=== PATIENT | female | born 1955 ===

== ENCOUNTER 2017-05-15 07:39 | Outpatient (CLI) | payer BC | END 2017-05-15 07:40 | disposition home or self-care (01) | LOC: BICMAMMO 07:39 | PROVIDERS: ATTEND Physician Assistant | DX: Z12.31 Encounter for screening mammogram for malignant neoplasm of breast (principal); R92.1 Mammographic calcification found on diagnostic imaging of breast | CPT/HCPCS: 77067; G0202 ==